=== PATIENT | female | born 1990 | race Caucasian/White ===

== ENCOUNTER 2021-09-30 11:41 | Day surgery (SDC) | payer OTHER ==
[2021-09-30] MEDS ORDERED: Depo-Medrol 40 MG/ML IM ONE (11:42)
[2021-09-30] MEDS ORDERED: LIDOCAINE HCL 2% 100 MG/5 ML IJ ONE (11:42)
[2021-09-30] MEDS ORDERED: Versed 2 MG/2 ML Injection ONE (14:06)
[2021-09-30] MEDS ORDERED: DIPRIVAN 200 MG/20 ML IV ONE ×2 (14:19→14:30)
[2021-09-30] MEDS ORDERED: Lactated Ringers 1,000 ML IV ONE (14:30)
--- NOTE | 2021-09-30 15:14 | XRAY ---
Indication: Bilateral L4-S1 MBB. Intraoperative fluoroscopy provided for 14 seconds. Single digital spot image submitted for interpretation demonstrates posterior needle tips projecting over the expected left and right L4-S1 nerve roots. Correlate with intraoperative findings/report.
--- NOTE | 2021-09-30 15:18 | XRAY ---
14 seconds fluoroscopy time in surgery for bilateral L4-S1 MBB.
== END 2021-09-30 14:50 | disposition home or self-care (01) ==
LOC: SDC-PAIN 11:41
PROVIDERS: ATTEND Psychiatry & Neurology Pain Medicine
DX: M47.816 Spondylosis without myelopathy or radiculopathy, lumbar region (principal); Z79.899 Other long term (current) drug therapy
CPT/HCPCS: 64493; 64494; 72020; 77002; J1030; J2250; J2704

== ENCOUNTER 2021-12-09 10:35 | Day surgery (SDC) | payer OTHER ==
[2021-12-09] MEDS ORDERED: LIDOCAINE HCL 2% 100 MG/5 ML IJ ONE (10:36)
[2021-12-09] MEDS ORDERED: Depo-Medrol 40 MG/ML IM ONE (10:36)
[2021-12-09] MEDS ORDERED: Versed 2 MG/2 ML Injection ONE ×2 (11:36→12:01)
[2021-12-09] MEDS ORDERED: Lactated Ringers 1,000 ML IV ONE (12:40)
[2021-12-09] MEDS ORDERED: DIPRIVAN 200 MG/20 ML IV ONE ×2 (12:47→12:51)
--- NOTE | 2021-12-09 15:08 | XRAY ---
Indication: Bilateral L2-L4 MBB. Intraoperative fluoroscopy provided for 18 seconds. Single digital spot image submitted for interpretation demonstrates posterior needle tips projecting over the expected left and right L2-L4 nerve roots. Correlate with intraoperative findings/report.
--- NOTE | 2021-12-09 15:11 | XRAY ---
18 seconds fluoroscopy time in surgery for bilateral L4-S1 MBB.
== END 2021-12-09 13:10 | disposition home or self-care (01) ==
LOC: SDC-PAIN 10:35
PROVIDERS: ATTEND Psychiatry & Neurology Pain Medicine
DX: M47.816 Spondylosis without myelopathy or radiculopathy, lumbar region (principal); Z79.899 Other long term (current) drug therapy
CPT/HCPCS: 64493; 64494; 72020; 77002; J1030; J2250; J2704